=== PATIENT | male | born 1990 | race Asian ===

== ENCOUNTER 2024-01-09 17:29 | Emergency (ER) | payer OTHER ==
[2024-01-09 17:35] VITALS: BP 129/80; PULSE 84; RESP 18; TEMP 98.5; BMI 28.1
[2024-01-09] MEDS ORDERED: ACETAMINOPHEN 500 MG TABLET (FP) PO ONE (17:54)
[2024-01-09] MEDS ORDERED: LIDOCAINE 4% PATCH TP ONE ×2 (17:55→17:56)
[2024-01-09] MEDS ORDERED: KETOROLAC TROMETHAMINE 30 MG/1 ML VIAL IM ONE (17:55)
[2024-01-09] MEDS ORDERED: ACETAMINOPHEN 500 MG TABLET (FP) ONE (17:56)
[2024-01-09] MEDS ORDERED: KETOROLAC TROMETHAMINE 30 MG/1 ML VIAL ONE (17:56)
[2024-01-09] MEDS ORDERED: LIDOCAINE PATCH REMOVAL MC SCH (22:00)
== END 2024-01-09 18:11 | disposition home or self-care (01) ==
LOC: JER 17:29 → JERFT 17:29
DX: M25.512 Pain in left shoulder (principal)
CPT/HCPCS: 99283-25

== ENCOUNTER 2024-01-11 15:39 | Emergency (ER) | payer OTHER ==
[2024-01-11 15:50] VITALS: BP 111/71; PULSE 75; RESP 20; TEMP 98; BMI 28.1
== END 2024-01-11 17:32 | disposition left against medical advice (07) ==
LOC: JERFT 15:39
DX: Z53.9 Procedure and treatment not carried out, unspecified reason (principal)
CPT/HCPCS: 99281-25